=== PATIENT | male | born 1975 | race Caucasian/White ===

== ENCOUNTER 2021-08-26 09:15 | Outpatient (REF) | payer OTHER, SELFPAY | END 2021-08-26 09:16 | disposition home or self-care (01) | LOC: HO.BBR 09:15 | PROVIDERS: Visit Provider Internal Medicine Gastroenterology | DX: Z13.89 Encounter for screening for other disorder (principal) ==

== ENCOUNTER 2021-09-27 09:02 | Outpatient (REF) | payer OTHER, SELFPAY | END 2021-09-27 09:03 | disposition home or self-care (01) | LOC: HO.BBR 09:02 | PROVIDERS: Visit Provider Internal Medicine Gastroenterology | DX: Z13.89 Encounter for screening for other disorder (principal) ==

== ENCOUNTER 2021-10-26 09:11 | Outpatient (REF) | payer OTHER, SELFPAY | END 2021-10-26 09:12 | disposition home or self-care (01) | LOC: HO.BBR 09:11 | PROVIDERS: Visit Provider Internal Medicine Gastroenterology | DX: Z13.89 Encounter for screening for other disorder (principal) ==

== ENCOUNTER 2021-12-07 09:53 | Outpatient (REF) | payer OTHER, SELFPAY | END 2021-12-07 09:54 | disposition home or self-care (01) | LOC: HO.BBR 09:53 | PROVIDERS: Visit Provider Internal Medicine Gastroenterology | DX: Z13.89 Encounter for screening for other disorder (principal) ==

== ENCOUNTER 2022-01-13 09:10 | Outpatient (REF) | payer OTHER, SELFPAY | END 2022-01-13 09:11 | disposition home or self-care (01) | LOC: HO.BBR 09:10 | PROVIDERS: Visit Provider Internal Medicine Gastroenterology | DX: Z13.89 Encounter for screening for other disorder (principal) ==

== ENCOUNTER 2022-02-17 09:14 | Outpatient (REF) | payer OTHER, SELFPAY | END 2022-02-17 09:15 | disposition home or self-care (01) | LOC: HO.BBR 09:14 | PROVIDERS: Visit Provider Internal Medicine Gastroenterology | DX: Z13.89 Encounter for screening for other disorder (principal) ==

== ENCOUNTER 2022-03-22 10:08 | Outpatient (REF) | payer OTHER, SELFPAY | END 2022-03-22 10:09 | disposition home or self-care (01) | LOC: HO.BBR 10:08 | PROVIDERS: Visit Provider Internal Medicine Gastroenterology | DX: Z13.89 Encounter for screening for other disorder (principal) ==

== ENCOUNTER 2022-05-16 09:54 | Outpatient (REF) | payer OTHER, SELFPAY | END 2022-05-16 09:55 | disposition home or self-care (01) | LOC: HO.BBR 09:54 | PROVIDERS: Visit Provider Internal Medicine Gastroenterology | DX: Z13.89 Encounter for screening for other disorder (principal) ==